=== PATIENT | female | born 1965 | race Native Hawaiian/Other Pacific Islander ===

== ENCOUNTER 2022-01-13 02:32 | Emergency (ER) | payer OTHER ==
[~2022-01-13] VITALS: Ht 157.5 cm; Wt 59.9 kg
[2022-01-13 02:45] VITALS: TEMP 98.6
[2022-01-13] MEDS ORDERED: METO25TA2 PO (03:30)
[2022-01-13] MEDS ORDERED: BUSPIRONE HYDR7.5 MG PO (03:30)
[2022-01-13 04:30] VITALS: BP 146/99
== END 2022-01-13 04:30 | disposition home or self-care (01) ==
LOC: ED 02:32
DX: F41.8 Other specified anxiety disorders (principal); F43.0 Acute stress reaction; I10 Essential (primary) hypertension; F17.210 Nicotine dependence, cigarettes, uncomplicated
CPT/HCPCS: 93005; 99282